=== PATIENT | female | born 1985 | race Caucasian/White ===

== ENCOUNTER 2017-02-15 05:50 | Day surgery (SDC) | payer BC ==
[2017-02-15] VITALS (10 sets, daily range): BP systolic 85–109; BP diastolic 38–74
[~2017-02-15] VITALS: Ht 160 cm; Wt 61.2 kg
[~2017-02-15 05:50] MED LIST: NKM
[2017-02-15] MEDS ORDERED: Dexamethasone 4mg/ml vial ONE (07:06)
[2017-02-15] MEDS ORDERED: Lidocaine 1% Plain 30 ml INJ ONE (07:07)
[2017-02-15] MEDS ORDERED: Bupivacaine 0.5% Inj 30 ml vial INJ ONE (07:07)
[2017-02-15] MEDS ORDERED: fentaNYL 100 mcg/2 mL IV ONE (07:30)
[2017-02-15] MEDS ORDERED: Midazolam 2mg/2ml Inj ONE (07:30)
[2017-02-15] MEDS ORDERED: Lidocaine 1% MPF 10mg/ml 5ml ONE (07:30)
[2017-02-15] MEDS ORDERED: LR 1000ml ONE (07:30)
[2017-02-15] MEDS ORDERED: Propofol 200mg/20ml IV ONE (07:30)
[2017-02-15] MEDS ORDERED: Ketorolac 30mg Inj ONE (07:30)
--- NOTE | 2017-02-15 07:34 | Pre-Procedure Note/Attestation ---
Pre-Procedure Note/Attestation Complete Prior to Procedure Procedure Narrative: Bunionectomy, osteotomy left foot Indications for Procedure Pre-Operative Diagnosis: Hallux Valgus with bunion deformity left foot Attestation I attest that I discussed the nature of the procedure; its benefits; risks and complications; and alternatives (and the risks and benefits of such alternatives ), prior to the procedure, with the patient (or the patient's legal farm loan representative). I attest that, if there was a reasonable possibility of needing a blood transfusion, the patient (or the patient's legal farm loan representative) was given the [facility] standardized written summary, pursuant to the [place] Blood Safety Act ([place] Health and Safety Code # 1645, as amended). I attest that I re-evaluated the patient just prior to the surgery and that there has been no change in the patient's H&P, except as documented below: YUSUF ALTMAN Feb 15, 2017 07:34
--- NOTE | 2017-02-15 08:05 | Anethesia Preoperative Eval ---
Anesthesia Pre-op PMH/ROS General Date of Evaluation: Feb 15, 2017 Time of Evaluation: 07:20 Anesthesiologist: Ever ASA Score: ASA 2 Mallampati Score Class I : Soft palate, uvula, fauces, pillars visible Class II: Soft palate, uvula, fauces visible Class III: Soft palate, base of uvula visible Class IV: Only hard plate visible Mallampati Classification: Class II Surgeon: Carlos Diagnosis: L foot bunion Surgical Procedure: L foot bunionectomy Anesthesia History: none Family History: no anesthesia problems Allergies: Coded Allergies: CODEINE (Verified Allergy, Severe, 02/15/17) DARK SUICIDAL THOUGHTS Medications: see eMAR Past Medical History Cardiovascular: Denies: HTN, CAD, ID, valve dz, arrhythmia, other Pulmonary: Denies: asthma, COPD, RICKEY, other Gastrointestinal/Genitourinary: Reports: GERD - mild, Denies: CRI, ESRD, other Neurologic/Psychiatric: Denies: dementia, CVA, depression/anxiety, TIA, other Endocrine: Denies: DM, hypothyroidism, steroids, other HEENT: Denies: cataract (L), cataract (R), glaucoma, EEK (L), EEK (R), other Hematology/Immune: Denies: anemia, DVT, bleeding disorder, other Musculoskeletal/Integumentary: Denies: OA, RA, DJD, DDD, edema, other PMH Narrative: as above PSxH Narrative: ORIF of the arm as a kid Anesthesia Pre-op Phys. Exam Physician Exam Last Vital Signs Date Time Temp Pulse Resp B/P (MAP) Pulse Ox O2 Delivery O2 Flow Rate FiO2 02/15/17 06:42 98.1 69 20 109/74 100 Room Air Constitutional: NAD Neurologic: CN 2-12 intact Cardiovascular: RRR, no M/R/G Respiratory: CTA Gastrointestinal: S/NT/ND Airway Exam Mallampati Score: Class II MO: full Neck: flexible ROM: full Teeth: intact Dentures: no upper, no lower Anesthesia Pre-op A/P Labs see chart Urine Test Test 02/15/17 06:00 Urine HCG, Qualitative Negative Studies Pre-op Studies: EKG - NSR Risk Assessment & Plan Assessment: ASA2 Plan: GA with LMA Status Change Before Surgery: No Pre-Antibiotics Drug: Ancef 1 gr. Given Within 1 Hr of Incision: Yes Time Given: 07:50 ESPERANZA DURHAM M.D. Feb 15, 2017 08:05
[2017-02-15] MEDS ORDERED: LR 1000ml 1,000 ML IVLG SCH (08:06)
[2017-02-15] MEDS ORDERED: Meperidine 50mg/ml Inj(FOR RIGORS ONLY) IV PRN (08:15)
[2017-02-15] MEDS ORDERED: Ketorolac 30mg Inj IV PRN (08:15)
[2017-02-15] MEDS ORDERED: Metoclopramide 10mg/2ml Inj IVP PRN (08:15)
[2017-02-15] MEDS ORDERED: Hydromorphone 0.5mg/0.5ml inj IVP PRN (08:15)
[2017-02-15] MEDS ORDERED: DiphenhydrAMINE 50mg/ml Inj IVP PRN (08:15)
[2017-02-15] MEDS ORDERED: Midazolam 2mg/2ml Inj IVP PRN (08:15)
--- NOTE | 2017-02-15 08:44 | Brief Operative Note ---
Immediate Post Operative Note Operative Note Pre-op Diagnosis: Hallux Valgus with bunion deformity left foot Procedure: .Chevron bunionectomy with screw fixation left foot Post-op Diagnosis: same as pre-op Surgeon: Carlos Anesthesiologist: Ever Anesthesia: MAC Specimen: yes Complications: none Condition: stable Fluids: 100 Estimated Blood Loss: none Implant(s) used?: Yes YUSUF ALTMAN Feb 15, 2017 08:44
--- NOTE | 2017-02-15 09:35 | Immediate Post-Op Evaluation ---
Immediate Post-Op Evalulation Immediate Post-Op Evalulation Procedure: L foot bunionectomy Date of Evaluation: Feb 15, 2017 Time of Evaluation: 08:55 IV Fluids: 800 Blood Products: none Estimated Blood Loss: min Urinary Output: none Blood Pressure Systolic: 95 Blood Pressure Diastolic: 52 Pulse Rate: 74 Respiratory Rate: 20 O2 Sat by Pulse Oximetry: 99 Temperature (Fahrenheit): 98.1 Pain Score (1-10): 2 Nausea: No Vomiting: No Complications none Patient Status: reacts, patent, none Hydration Status: adequate ESPERANZA DURHAM M.D. Feb 15, 2017 09:35
--- NOTE | 2017-02-15 11:44 | 48 Hour Post Anesthesia Eval ---
Post Anesthesia Evaluation Procedure: L foot bunionectomy Date of Evaluation: Feb 15, 2017 Time of Evaluation: 11:42 Blood Pressure Systolic: 102 0: 48 Pulse Rate: 72 Respiratory Rate: 20 Temperature (Fahrenheit): 97.8 O2 Sat by Pulse Oximetry: 99 Airway: patent Nausea: No Vomiting: No Pain Intensity: 1 Hydration Status: adequate Cardiopulmonary Status: stable Mental Status/LOC: patient returned to baseline Follow-up Care/Observations: n/a Post-Anesthesia Complications: none Follow-up care needed: ready to discharge ESPERANZA DURHAM M.D. Feb 15, 2017 11:44
--- NOTE | 2017-02-15 13:05 | Diagnostic Imaging Report ---
Indication: POST-OP status post bunionectomy Technique: 3 views left foot Comparison: none Findings: Patient is status post bunionectomy and first metatarsal osteotomy, which appears low-lying. A single surgical screw is in place. Retained air within the soft tissues from the surgical exposure is noted. No acute fractures otherwise. No dislocations. Joint spaces are preserved Impression: Postoperative left foot. No unusual features
--- NOTE | 2017-02-15 15:30 | Operative Note - Dictated ---
DATE OF OPERATION: 02/15/2017 SURGEON: Hamlet Gonzalez D.P.M. ANESTHESIOLOGIST: Devin Curtis M.D. ANESTHESIA: Local standby. PREOPERATIVE DIAGNOSIS: Hallux abductovalgus with bunion deformity, left foot. POSTOPERATIVE DIAGNOSIS: Hallux abductovalgus with bunion deformity, left foot. PROCEDURE PERFORMED: Chevron osteotomy with screw fixation left foot. DESCRIPTION OF THE OPERATION: The patient was brought to the operating room and was placed on the operating room table in the supine position. Intravenous sedation was administered by the anesthesiologist. Local anesthesia consisting of 20 mL of 0.5% Marcaine plain was administered to the left hallux. An ankle tourniquet was applied to the left lower extremity. The foot was prepped and draped in the usual sterile manner. An Esmarch bandage was then utilized to exsanguinate the blood and the left ankle tourniquet was inflated to 250 millimeters of mercury. Attention was directed to the left hallux where an approximately 6 centimeter dorsal linear skin incision was centered over the first metatarsophalangeal joint. The incision was deepened utilizing sharp and blunt dissection with care being taken to ligate or cauterize any vessels. At the level of the capsule a linear capsulotomy was performed. The capsule was reflected medially and laterally and the head of the first metatarsal was exposed. Utilizing a sagittal saw, the medial eminence was resected in total. The remaining bone was rasped smooth. The wound was copiously flushed utilizing sterile saline. A lateral release was then carried utilizing a 67 blade. At this point, a chevron osteotomy was carried with the apex distally and the arms protruding proximally a through and through type osteotomy was carried out utilizing the sagittal saw. The head of the first metatarsal was then transposed laterally and fixated onto the first metatarsal neck and shaft utilizing a 3-0 search through 24 millimeters in length. The screw was driven from proximal dorsal to plantar distal. At this point, the overhang was resected utilizing a sagittal saw. The remaining bone was rasped smooth. The wound was copiously flushed utilizing sterile saline. The capsule was then reapproximated utilizing 3-0 Vicryl in a simple interrupted type stitch. The subcutaneous tissue was then reapproximated utilizing 4-0 Vicryl in a buried knot type stitch. The skin was then reapproximated utilizing 5-0 nylon in a simple interrupted type stitch. The wound was dressed utilizing an Adaptic, 4 x 4 gauze, and 3-inch Dee. The left ankle tourniquet was deflated and vascular supply was noted to all digits of left foot. The patient tolerated the procedure well and left the operating room to recovery room with all vital signs stable. Hamlet Gonzalez D.P.M. DR: DON JOB#: [id number] CC:
--- NOTE | 2017-02-15 15:45 | History and Physical Report ---
DATE OF ADMISSION: 02/15/2017 PODIATRIC HISTORY AND PHYSICAL HISTORY OF PRESENT ILLNESS: This is a 31-year-old white female that is admitted today for an outpatient bunionectomy of her left foot. The patient has been complaining of pain from her left hallux during the past few months especially during and after exercise. Shoe-gear modification and padding failed to alleviate the pain and discomfort and the patient was consulted on bunionectomy. PAST MEDICAL HISTORY: Unremarkable. MEDICATIONS: None. ALLERGIES: She is allergic to codeine. PHYSICAL EXAMINATION: VASCULAR EXAMINATION: Dorsalis pedis and posterior tibial arteries reveals intact strong pulses measuring 3/4 bilaterally. Capillary filling time is less than 3 seconds to all digits bilaterally. No varicosities are noted bilateral lower extremity. Homans sign is negative. NEUROLOGICAL EXAMINATION: Reveals intact reflexes, Achilles and patellar measuring 2/4 bilaterally. Sensation, proprioception and vibrations are all intact bilateral lower extremity. Babinski is negative. Clonus is absent bilaterally. MUSCULOSKELETAL EXAMINATION: Reveals a stage 2 to 3 hallux abductovalgus with bunion deformity of the left foot. The hallux is abutting and slightly overriding the second digit on the left. Range of motion of the first metatarsophalangeal joint is slightly reduced in the dorsiflexory position. No crepitation is noted. All other joints range of motions are full and pain free. The right hallux is noted to be in slight varus position while the patient is weightbearing. Her calcaneus is everted bilaterally with weightbearing and she is noted to be in a pronated position while standing. DERMATOLOGICAL EXAMINATION: Reveals no lesions, scars, or ulcers bilaterally. All nails are present and healthy bilaterally. ASSESSMENT: Hallux abductovalgus with bunion deformity, left foot. PLAN: The patient is admitted today for bunionectomy of her left foot. Risks, complications, and alternatives were discussed with the patient. Postoperative medication was dispensed. Postoperative instructions were given to the patient. The patient elected to proceed with surgery. Hamlet Gonzalez D.P.M. DR: ISABELLE JOB#: [id number] CC:
== END 2017-02-15 11:15 | disposition home or self-care (01) ==
LOC: SUR 05:50
DX: M20.12 Hallux valgus (acquired), left foot (principal); M21.612 Bunion of left foot; Z88.6 Allergy status to analgesic agent; F32.9 Major depressive disorder, single episode, unspecified; F41.9 Anxiety disorder, unspecified; K21.9 Gastro-esophageal reflux disease without esophagitis
CPT/HCPCS: 28291; 28306; 73630; 81025; 97161; C1713; J0690; J1100; J1885; J2250; J2405; J2704; J3010; J3490; J7120; 94003; 94150